=== PATIENT | male | born 1955 | race Caucasian/White ===

== ENCOUNTER 2022-02-08 13:42 | Emergency (ER) | payer BC ==
[2022-02-08] MEDS ORDERED: Sodium Chloride 0.9% 10 ML Syringe FLUSH PRN (15:47)
[2022-02-08] MEDS ORDERED: Sodium Chloride 0.9% 2.5 ML Syringe FLUSH PRN (15:47)
[2022-02-08] MEDS ORDERED: Sodium Chloride 0.9% 1,000 ML IV ONE (15:47)
[2022-02-08 18:18] LABS: POTASSIUM,K 3.3 mmol/L (3.5-5.1)
[2022-02-08] MEDS ORDERED: Iopamidol 755 MG/ML 500 ML Multipack Bottle IVPUSH STA (18:56)
== END 2022-02-08 20:04 | disposition home or self-care (01) ==
LOC: MW.ED 13:42
DX: K57.92 Diverticulitis of intestine, part unspecified, without perforation or abscess without bleeding (principal); E86.0 Dehydration
CPT/HCPCS: 36415; 74177; 80053; 81003; 83690; 85025; 96360; 96361; 99284; J3490; J7030; Q9967